=== PATIENT | female | born 1950 | race Caucasian/White ===

== ENCOUNTER 2018-02-22 12:26 | Day surgery (SDC) | payer MEDICARE ==
[~2018-02-22] VITALS: Ht 157.5 cm; Wt 111.8 kg
[2018-02-22 12:53] LABS: HEMATOCRIT 43.3 % (36.0-48.0); HEMOGLOBIN 14.3 g/dL (12-16); MCH 30.2 pg (26.0-34.0); MCV 91.4 fL (80.0-100.0); MEAN PLATELET VOLUME 9.9 fL (7.4-10.4); RBC 4.74 10x6/uL (4.00-5.40); RDW 14.4 % (11.5-14.5); WBC 4.8 10x3/uL (4.8-10.8)
[2018-02-22 13:05] VITALS: BP 161/101; Ht 157.5 cm; Wt 111.8 kg
--- NOTE | 2018-03-02 15:41 | OP ---
PATIENT NAME: TONY ENRIQUEZ MEDICAL RECORD: [id number] :46 LOCATION:[facility] ADMISSION DATE: SURGEON: CAITLIN EPSTEIN MD DATE OF OPERATION: 02/22/2018 PROCEDURE: Colonoscopy with polypectomy and polyp ablation. INDICATIONS: Ms. Enriquez is a delightful 67-year-old woman with a history of colon polyps and diverticulosis coli. Last colonoscopy was 07/01/2014, at which time 15 colorectal polyps were removed (polyps were tubular adenomatous and hyperplastic in nature). She presents for outpatient colonoscopy. PREMEDICATIONS: Total IV anesthesia (BMI 45) and propofol 350 mg, Ancef 1 g IV. INSTRUMENT: Olympus video colonoscope, pediatric. PROCEDURE AND FINDINGS: After receiving informed consent, Ms. Enriquez was placed in left lateral decubitus position, sedated as per anesthesia. After achieving adequate level of sedation, digital rectal exam was performed that showed no external hemorrhoidal tags, fissures or fistulas, normal sphincter tone, no palpable rectal masses. The colonoscope was introduced per rectally and advanced to the cecum without difficulty. She had a fairly long and redundant left colon. The cecum, IC valve, and appendiceal orifice are identified. Within the cecum were 3 polyps; one was 0.25 cm in size, second polyp was 0.5 cm in size, and the third polyp was 0.75 cm in size, all removed with hot biopsy forcep technique. In the proximal ascending colon was 1 polyp measuring 0.5 cm in size, removed with hot biopsy forcep technique. In the mid ascending colon, was a 0.75 cm sessile polyp removed with hot biopsy forceps technique adjacent to this polyp. In a recessed region between folds was a 0.3 cm sessile polyp that was ablated with the tip of the hot biopsy forceps. At the hepatic flexure was a 0.5 cm sessile polyp removed with the biopsy forcep technique. At the splenic flexure was a 0.5-0.75 cm sessile polyp removed with the biopsy forcep technique. In the descending colon was a 0.3-0.5 cm sessile polyp removed with hot biopsy forcep technique. In the sigmoid colon were 3 polyps measuring 0.3-0.5 cm in size, sessile, removed with hot biopsy forcep technique and within distal rectum was a 0.3 cm sessile polyp removed with hot biopsy forceps technique. A few small diverticula were seen scattered in the sigmoid colon. Retroflexion in rectum showed mild internal hemorrhoids, good prep was present. Mr. Enriquez tolerated the procedure well, no immediate complications. ASSESSMENT: 1. Three cecal polyp status post polypectomy. 2. Paroxysmal ascending colon polyp status post polypectomy. 3. One mid ascending colon polyp status post polypectomy. 4. Small recessed mid ascending colon polyp status post ablation. 5. Hepatic flexure polyp status post polypectomy. 6. Splenic flexure polyp status post polypectomy. 7. Descending colon polyp status post polypectomy. 8. Three sigmoid polyp status post polypectomy. 9. Rectal polyp, status post polypectomy. 10. Moderate sigmoid diverticulosis coli. RECOMMENDATIONS: 1. Follow up histopathology. OPERATIVE REPORT [id number] TONY ENRIQUEZ 2. Avoid aspirin, nonsteroidal anti-inflammatory drugs and MCDONOUGH-2 inhibitors for 14 days post polypectomy. 3. High fiber diet. 4. Surveillance colonoscopy in 3 years. TRANSINT:[id number] Voice Confirmation ID: [id number] DOCUMENT ID: [id number] CAITLIN EPSTEIN MD at 1541 CC: HUMZA LEWIS MD [id number] DICTATION DATE: 02/22/18 1455 TSO: 02/23/[address] [facility] 02/22/18 [facility] [address] [place] [address]
== END 2018-02-22 16:05 | disposition home or self-care (01) ==
LOC: D.OPS 12:26
PROVIDERS: Anesthesiology
DX: D12.2 Benign neoplasm of ascending colon (principal); D12.0 Benign neoplasm of cecum; D12.4 Benign neoplasm of descending colon; D12.3 Benign neoplasm of transverse colon; D12.5 Benign neoplasm of sigmoid colon; K62.1 Rectal polyp; K57.30 Diverticulosis of large intestine without perforation or abscess without bleeding; Z86.010 Personal history of colon polyps; Z01.812 Encounter for preprocedural laboratory examination